=== PATIENT | male | born 1975 | race Caucasian/White ===

== ENCOUNTER 2024-04-11 07:23 | Day surgery (SDC) | payer MEDICAID ==
[~2024-04-11] VITALS: Ht 175.3 cm; Wt 90.7 kg
[2024-04-11] MEDS ORDERED: fentaNYL CITRATE/PF 100 MCG/2 ML AMP ONE (09:01)
[2024-04-11] MEDS ORDERED: MIDAZOLAM HCL 5 MG/5 ML VIAL ONE (09:02)
[2024-04-11 13:35] VITALS: O2SAT 100
[2024-04-11 13:46] VITALS: BP_SYST 121; PULSE 70; RESP 23
== END 2024-04-11 10:45 | disposition home or self-care (01) ==
LOC: SDS 07:23 → SMU 07:25 → SDS 10:45
PROVIDERS: ATTEND Internal Medicine
DX: Z12.11 Encounter for screening for malignant neoplasm of colon (principal); K57.30 Diverticulosis of large intestine without perforation or abscess without bleeding; K64.0 First degree hemorrhoids; I11.0 Hypertensive heart disease with heart failure; I50.22 Chronic systolic (congestive) heart failure; E78.5 Hyperlipidemia, unspecified; I25.2 Old myocardial infarction; Z98.890 Other specified postprocedural states; Z79.899 Other long term (current) drug therapy
CPT/HCPCS: 45378; 99152; 82948; G0378; J2250; J3010